=== PATIENT | male | born 1950 | race Caucasian/White ===

== ENCOUNTER 2016-11-28 16:48 | Emergency (ER) | payer MEDICARE, OTHER ==
[2016-11-28] MEDS ORDERED: Adacel (T-DAP) 0.5 ML VIAL ONE (17:31)
[2016-11-28] MEDS ORDERED: Lidocaine 1% 20 ML MDV ONE (17:33)
[2016-11-28] MEDS ORDERED: Bacitracin Zinc 1 Packet ONE ×2 (18:17→18:24)
[2016-11-28] MEDS ORDERED: Sulfameth/Trimethoprim DS 800-160mg TAB ONE (19:08)
--- NOTE | 2016-11-28 19:15 | RAD ---
RIGHT FINGERS 11/28/16 The second through fifth digits are displayed. There is a fracture through the terminal tuft of the distal phalanx of the index finger and it is likely that some of the bone here is actually missing. The joint is not involved. The other fingers appeared intact. IMPRESSION: Fracture of the distal end of the distal phalanx of the index finger. POS: HOME
== END 2016-11-28 19:18 | disposition home or self-care (01) ==
LOC: BURERS 16:48
DX: S62.660B Nondisplaced fracture of distal phalanx of right index finger, initial encounter for open fracture (principal); S61.212A Laceration without foreign body of right middle finger without damage to nail, initial encounter; E11.9 Type 2 diabetes mellitus without complications; E78.00 Pure hypercholesterolemia, unspecified; E78.5 Hyperlipidemia, unspecified; I10 Essential (primary) hypertension; Z87.891 Personal history of nicotine dependence; Z23 Encounter for immunization; Z79.84 Long term (current) use of oral hypoglycemic drugs; Z79.899 Other long term (current) drug therapy; W27.0XXA Contact with workbench tool, initial encounter; Y92.009 Unspecified place in unspecified non-institutional (private) residence as the place of occurrence of the external cause
CPT/HCPCS: 11760; 12001; 36416; 90471; 90715; J2001